=== PATIENT | male | born 2000 | race Caucasian/White ===

== ENCOUNTER 2019-03-08 14:32 | Emergency (ER) | payer OTHER ==
[~2019-03-08] VITALS: Ht 172.7 cm; Wt 75.7 kg
--- NOTE | 2019-03-08 14:38 | NUR ---
PT AMBULATED TO BED 03.
[2019-03-08 14:40] VITALS: BP 156/116
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
--- NOTE | 2019-03-08 16:50 | NUR ---
ER MD AT BEDSIDE ASSESSING PT. PT AWAKE, SITTING ON SIDE OF BED. AOX4, DENIES ANY DISTRESS , TAPIA. WILL CONTINUE TO MONITOR PT.
--- NOTE | 2019-03-08 16:59 | NUR ---
PT WENT TO CT.
--- NOTE | 2019-03-08 17:11 | NUR ---
PT BACK FORM CT. SITTING ON CHAIR, TALKING ON PHONE. STABLE AT THIS TIME.
[2019-03-08 17:55] VITALS: BP 140/99
--- NOTE | 2019-03-08 17:55 | NUR ---
Patient discharged with v/s stable. Written and verbal after care instructions given and explained. Patient alert, oriented and verbalized understanding of instructions. Ambulatory with steady gait. All questions addressed prior to discharge. ID band removed. Patient advised to follow up with PMD. Rx of MOTRIN 800 given. Patient educated on indication of medication including possible reaction and side effects. Opportunity to ask questions provided and answered.
== END 2019-03-08 17:55 | disposition home or self-care (01) ==
LOC: MED 14:32
DX: S09.90XA Unspecified injury of head, initial encounter (principal); M54.2 Cervicalgia; V49.9XXA Car occupant (driver) (passenger) injured in unspecified traffic accident, initial encounter; Y93.89 Activity, other specified; Y92.410 Unspecified street and highway as the place of occurrence of the external cause; Y99.8 Other external cause status
CPT/HCPCS: 70450; 99284